=== PATIENT | male | born 1985 | race Caucasian/White ===

== ENCOUNTER 2017-08-20 10:46 | Emergency (ER) | payer OTHER ==
--- NOTE | 2017-08-20 13:06 | Emergency Department Report ---
ED ENT HPI - General Chief complaint: Earache Stated complaint: EAR PAIN Time Seen by Provider: 08/20/17 12:41 Source: patient Mode of arrival: Ambulatory Limitations: No Limitations - History of Present Illness Initial comments: This is a 31 male that presents with left ear pain and clogging sensation for 2 days. Patient reports recently moved here from [place] and does not have a primary care doctor. He has recently applied to transfer here to [place]. Patient reports hearing is normal on right ear but left ear feels flow and urine give small full. He used Q-tips to clean the ears out with no improvement of symptoms. Patient denies drainage and fever. MD complaint: ear pain (left ear) Onset/Timin -: days(s) Location: L ear Severity: mild Severity scale (0 -10): 2 Quality: aching, sharp, constant Consistency: constant Improves with: none Worsens with: none Associated Symptoms: denies: fever, cough, gum swelling, toothache, pain with swallowing, sore throat, tinnitus, hearing loss (muffled hearing in left ear), discharge from ear, rhinorrhea - Related Data Previous Rx's Medication Instructions Recorded Last Taken Type Amoxicillin 500 mg PO BID 10 Days #20 capsule 08/20/17 Unknown Rx Ibuprofen [Motrin 800 MG tab] 800 mg PO Q8HR PRN #20 tablet 08/20/17 Unknown Rx Allergies Allergy/AdvReac Type Severity Reaction Status Date / Time No Known Allergies Allergy Unverified 08/20/17 10:53 ED Dental HPI - General Chief complaint: Earache Stated complaint: EAR PAIN Time Seen by Provider: 08/20/17 12:41 Source: patient Mode of arrival: Ambulatory Limitations: No Limitations - Related Data Previous Rx's Medication Instructions Recorded Last Taken Type Amoxicillin 500 mg PO BID 10 Days #20 capsule 08/20/17 Unknown Rx Ibuprofen [Motrin 800 MG tab] 800 mg PO Q8HR PRN #20 tablet 08/20/17 Unknown Rx Allergies Allergy/AdvReac Type Severity Reaction Status Date / Time No Known Allergies Allergy Unverified 08/20/17 10:53 ED Review of Systems ROS: Stated complaint: EAR PAIN Other details as noted in HPI Constitutional: denies: chills, fever ENT: ear pain (left ear). denies: throat pain, dental pain, hearing loss, epistaxis, congestion Respiratory: denies: cough, shortness of breath, wheezing Cardiovascular: denies: chest pain, palpitations Gastrointestinal: denies: abdominal pain, nausea, diarrhea Neurological: denies: headache, weakness, paresthesias Psychiatric: denies: anxiety, depression ED Past Medical Hx - Past Medical History Previous Medical History?: No Hx Psychiatric Treatment: Yes (bipolar) - Surgical History Past Surgical History?: No - Social History Smoking Status: Never Smoker Substance Use Type: None - Medications Home Medications: Home Medications Medication Instructions Recorded Confirmed Last Taken Type Amoxicillin 500 mg PO BID 10 Days #20 capsule 08/20/17 Unknown Rx Ibuprofen [Motrin 800 MG tab] 800 mg PO Q8HR PRN #20 tablet 08/20/17 Unknown Rx ED Physical Exam - General Limitations: No Limitations General appearance: alert, in no apparent distress - ENT ENT exam: Present: mucous membranes moist. Absent: TM's normal bilaterally ( left TM erythematous, bulging, & immobile) - Respiratory Respiratory exam: Present: normal lung sounds bilaterally. Absent: respiratory distress - Cardiovascular Cardiovascular Exam: Present: regular rate, normal rhythm. Absent: systolic murmur, diastolic murmur, rubs, gallop - GI/Abdominal GI/Abdominal exam: Present: soft, normal bowel sounds - Neurological Exam Neurological exam: Present: alert, oriented X3 - Psychiatric Psychiatric exam: Present: normal affect, normal mood - Skin Skin exam: Present: warm, dry, intact, normal color. Absent: rash ED Course Vital Signs 08/20/17 08/20/17 10:53 13:25 Temperature 98.2 F 98.7 F Pulse Rate 118 H 92 H Respiratory 18 16 Rate Blood Pressure 114/84 Blood Pressure 112/66 [Left] O2 Sat by Pulse 96 99 Oximetry Vital Signs 08/20/17 08/20/17 10:53 13:25 Temperature 98.2 F 98.7 F Pulse Rate 118 H 92 H Respiratory 18 16 Rate Blood Pressure 114/84 Blood Pressure 112/66 [Left] O2 Sat by Pulse 96 99 Oximetry ED Medical Decision Making - Medical Decision Making This is a 31 y.o. male that presents with left ear pain and muffled hearing for 2 days. Patient is stable and was examined by me. Vitals normal. There was cerumen impaction, removed with curette, bulging erythematous TM to the left ear. Physical assessment susceptible of serous otitis media of left ear. Start amoxicillin, tylenol or ibuprofen for pain. Discussed plan with patient and he agreed with plan. Discharged home in stable condition. Follow up with PCP in 24-72 hours. Critical care attestation.: If time is entered above; I have spent that time in minutes in the direct care of this critically ill patient, excluding procedure time. ED Disposition Clinical Impression: Otalgia of left ear Otitis media Qualifiers: Otitis media type: suppurative Chronicity: acute Laterality: left Recurrence: not specified as recurrent Spontaneous tympanic membrane rupture: without spontaneous rupture Qualified Code(s): H66.002 - Acute suppurative otitis media without spontaneous rupture of ear drum, left ear Disposition: TO HOME OR SELFCARE Is pt being admited?: No Does the pt Need Aspirin: No Condition: Stable Instructions: Otitis Media (ED), Earache (ED) Additional Instructions: Give tylenol or ibuprofen for pain every 6-8 hours. Take antibiotics as prescribed to avoid recurrence of the ear infection. Avoid high altitudes, may worsen the pain during ear infection. If symptoms do not improve within 2 to 3 days, then follow up with a primary care provider. Prescriptions: Amoxicillin 500 mg PO BID 10 Days #20 capsule Ibuprofen [Motrin 800 MG tab] 800 mg PO Q8HR PRN #20 tablet PRN Reason: Pain , Severe (7-10) Referrals: [facility] [Outside] - 3-5 Days [facility] [Outside] - 3-5 Days [facility] [Outside] - 3-5 Days Time of Disposition: 13:14 Print Language: ENGLISH
[2017-08-20 13:27] VITALS: BP 112/66
== END 2017-08-20 13:25 | disposition home or self-care (01) ==
LOC: ED 10:46
DX: H66.002 Acute suppurative otitis media without spontaneous rupture of ear drum, left ear (principal); F31.9 Bipolar disorder, unspecified; H61.22 Impacted cerumen, left ear
CPT/HCPCS: 99282

== ENCOUNTER 2017-10-28 15:39 | Emergency (ER) | payer MEDICAID ==
[2017-10-28 16:15] VITALS: BP 107/76
[2017-10-28 16:16] LABS: Basophils % (Auto) 0.7 % (0.0-1.8); Hematocrit 46.9 % (35.5-45.6); Hemoglobin 15.9 gm/dl (11.8-15.2); Lymphocytes # (Auto) 0.9 K/mm3 (1.2-5.4); Lymphocytes % (Auto) 13.5 % (13.4-35.0); Mean Corpuscular HGB Conc 34 % (32-34); Mean Corpuscular Hemoglobin 31 pg (28-32); Mean Corpuscular Volume 91 fl (84-94); Monocytes # (Auto) 0.4 K/mm3 (0.0-0.8); Monocytes % (Auto) 6.2 % (0.0-7.3); Platelet Count 233 K/mm3 (140-440); Red Blood Count 5.13 M/mm3 (3.65-5.03); Red Cell Distribution Width 13.6 % (13.2-15.2)
[2017-10-28 16:43] LABS: BUN/Creatinine Ratio 13; Blood Urea Nitrogen 9 mg/dL (9-20); Calcium 9.8 mg/dL (8.4-10.2); Hemolysis Index 10
--- NOTE | 2017-10-28 17:04 | Emergency Department Report ---
ED Seizure HPI - General Chief Complaint: Syncope Stated Complaint: POSS SEIZURE Time Seen by Provider: 10/28/17 16:37 Source: patient, EMS Mode of arrival: Stretcher Limitations: No Limitations - History of Present Illness Initial Comments: Mr. Mcmillan is a very pleasant 31-year-old male with history of bipolar disorder andschizophrenia who presents with syncope versus seizure. Earlier this week he has 2 seizure like episodes. He fell to the ground and the mother noticed that he was shaking. No previous history of head injury. No history of trauma. His mother felt as if the cause was psychiatric, therefore she voluntarily took him to [facility] on yesterday. He had a similar episode at the facility today. Patient explained that he felt flushed all over and then went down. Patient just moved to [place] 2 months ago. He has moved from [place] with his parents. He denies hallucinations. He denies suicidal or homicidal ideation. However on progress note from [facility], patient admitted to auditory halluciations. Medications include Cogentin and Prozac Prilosec Effexor Xanax Abilify Risperdal. Patient is not on involuntary hold. Mother is at the bedside. No other medical history. He denies hypertension diabetes or asthma. No history of tobacco alcohol or drug use. Patient had mild headache which has resolved. Mother desires to take him home and not return to [facility]. Complaint: possible seizure Description of Episode: loss of consciousness Seizure History: none - Related Data Previous Rx's Medication Instructions Recorded Last Taken Type Amoxicillin 500 mg PO BID 10 Days #20 capsule 08/20/17 Unknown Rx Ibuprofen [Motrin 800 MG tab] 800 mg PO Q8HR PRN #20 tablet 08/20/17 Unknown Rx Allergies Allergy/AdvReac Type Severity Reaction Status Date / Time No Known Allergies Allergy Unverified 08/20/17 10:53 ED Review of Systems ROS: Stated complaint: POSS SEIZURE Other details as noted in HPI Comment: All other systems reviewed and negative Constitutional: denies: fever, malaise Cardiovascular: denies: chest pain, palpitations Neurological: headache. denies: numbness, paresthesias, confusion, abnormal gait ED Past Medical Hx - Past Medical History Previous Medical History?: Yes Hx Psychiatric Treatment: Yes (bipolar/schizophrenia) - Surgical History Past Surgical History?: No - Social History Smoking Status: Never Smoker Substance Use Type: None - Medications Home Medications: Home Medications Medication Instructions Recorded Confirmed Last Taken Type Amoxicillin 500 mg PO BID 10 Days #20 capsule 08/20/17 Unknown Rx Ibuprofen [Motrin 800 MG tab] 800 mg PO Q8HR PRN #20 tablet 08/20/17 Unknown Rx ED Physical Exam - General Limitations: No Limitations General appearance: alert, in no apparent distress - Head Head exam: Present: atraumatic, normocephalic - Eye Eye exam: Present: normal appearance - ENT ENT exam: Present: mucous membranes moist - Neck Neck exam: Present: normal inspection. Absent: tenderness, meningismus - Respiratory Respiratory exam: Present: normal lung sounds bilaterally. Absent: respiratory distress, wheezes, rales, rhonchi - Cardiovascular Cardiovascular Exam: Present: regular rate, normal rhythm, normal heart sounds. Absent: systolic murmur, diastolic murmur, rubs, gallop - GI/Abdominal GI/Abdominal exam: Present: soft, normal bowel sounds. Absent: distended, tenderness, guarding, rebound - Rectal Rectal exam: Present: deferred - Extremities Exam Extremities exam: Present: normal inspection - Back Exam Back exam: Present: normal inspection - Neurological Exam Neurological exam: Present: alert, oriented X3, CN II-XII intact. Absent: motor sensory deficit - Psychiatric Psychiatric exam: Present: normal affect, normal mood, other (pleasant articulate) - Skin Skin exam: Present: warm, dry, intact, normal color. Absent: rash ED Course Vital Signs 10/28/17 10/28/17 10/28/17 15:52 15:54 16:00 Temperature 98.8 F Pulse Rate 109 H 105 H 116 H Respiratory 19 18 10 L Rate Blood Pressure 128/93 128/93 107/76 O2 Sat by Pulse 97 97 96 Oximetry ED Medical Decision Making - Lab Data Result diagrams: 10/28/17 16:01 10/28/17 16:01 Laboratory Results - last 24 hr 10/28/17 10/28/17 10/28/17 16:01 16:01 16:01 WBC RBC Hgb Hct MCV MCH MCHC RDW Plt Count Lymph % (Auto) [place] % (Auto) Eos % (Auto) Baso % (Auto) Lymph # [place] # Eos # Baso # Seg Neutrophils % Seg Neutrophils # Sodium 139 Potassium 4.0 Chloride 100.0 Carbon Dioxide 21 L Anion Gap 22 BUN 9 Creatinine 0.7 L Estimated GFR > 60 BUN/Creatinine Ratio 13 Glucose 92 Calcium 9.8 Troponin T < 0.010 Salicylates < 0.3 L Acetaminophen < 5.0 L Plasma/Serum Alcohol 10/28/17 10/28/17 16:01 16:01 WBC 6.4 RBC 5.13 H Hgb 15.9 H Hct 46.9 H MCV 91 MCH 31 MCHC 34 RDW 13.6 Plt Count 233 Lymph % (Auto) 13.5 [place] % (Auto) 6.2 Eos % (Auto) 0.0 Baso % (Auto) 0.7 Lymph # 0.9 L [place] # 0.4 Eos # 0.0 Baso # 0.0 Seg Neutrophils % 79.6 H Seg Neutrophils # 5.1 Sodium Potassium Chloride Carbon Dioxide Anion Gap BUN Creatinine Estimated GFR BUN/Creatinine Ratio Glucose Calcium Troponin T Salicylates Acetaminophen Plasma/Serum Alcohol < 0.01 - EKG Data -: EKG Interpreted by Md EKG shows normal: sinus rhythm, axis, intervals, QRS complexes, ST-T waves Rate: tachycardia - EKG Data Interpretation: no acute changes - Radiology Data Radiology results: report reviewed CT head without acute process - Medical Decision Making Mr Mcmillan presents with seizure like activity. DDX: medication effect vs epilepsy vs conversion disorder vs vasovagal syncope I do not suspect cardiac cause or PE. Patient will need outpatient evaluation. I have referred patient to internal medicine physician and neurologist. Mother understand concerns. Normal QTc on EKG, torsades highly unlikely although patient is on several psychotropic medications Tachycardia did resolve Critical care attestation.: If time is entered above; I have spent that time in minutes in the direct care of this critically ill patient, excluding procedure time. ED Disposition Clinical Impression: Seizure-like activity, Syncope Disposition: DC-01 TO HOME OR SELFCARE Is pt being admited?: No Does the pt Need Aspirin: No Condition: Stable Instructions: Syncope (ED), Non-epileptic Seizures (ED) Referrals: HIREN DUARTE MD [Staff Physician] - 3-5 Days [facility] [Outside] - 3-5 Days Time of Disposition: 18:52
--- NOTE | 2017-10-28 18:36 | Cat Scan Report ---
FINAL REPORT EXAM: CT HEAD/BRAIN WO CON HISTORY: possible seizure TECHNIQUE: CT examination of the head without IV contrast PRIORS: None. FINDINGS: There is a prominent retrocerebellar CSF collection in the midline, split by the falx, with a normal vermis and normal cerebellar hemispheres. This is most compatible with normal variant ki cisterna magna. No acute air-fluid level visualized in the included air-filled sinuses. Bone windows demonstrate no acute fracture. The brain is without mass, mass effect, hemorrhage, or acute infarct. There is no extra-axial intracranial bleed, brain bleed, or midline shift. The ventricles and sulci are age-appropriate. IMPRESSION: No acute CVA, intracranial bleed, or brain mass
== END 2017-10-28 19:14 | disposition home or self-care (01) ==
LOC: ED 15:39
DX: R56.9 Unspecified convulsions (principal); R55 Syncope and collapse; F31.9 Bipolar disorder, unspecified; F20.9 Schizophrenia, unspecified; Z79.899 Other long term (current) drug therapy
CPT/HCPCS: 36415; 70450; 80048; 84484; 85025; 93005; 93010; 99284; G0480; 80320

== ENCOUNTER 2019-02-22 10:15 | Outpatient (CLI) | payer MEDICAID ==
[2019-02-22 13:37] LABS: Basophils % (Auto) 0.8 % (0.0-1.8); Eosinophils # (Auto) 0.3 K/mm3 (0.0-0.4); Eosinophils % (Auto) 5.5 % (0.0-4.3); Hematocrit 47.4 % (35.5-45.6); Hemoglobin 16.1 gm/dl (11.8-15.2); Lymphocytes % (Auto) 38.4 % (13.4-35.0); Mean Corpuscular HGB Conc 34 % (32-34); Mean Corpuscular Volume 94 fl (84-94); Monocytes # (Auto) 0.4 K/mm3 (0.0-0.8); Monocytes % (Auto) 7.6 % (0.0-7.3); Platelet Count 196 K/mm3 (140-440); Red Blood Count 5.08 M/mm3 (3.65-5.03); Red Cell Distribution Width 12.9 % (13.2-15.2)
[2019-02-22 13:53] LABS: Alanine Aminotransferase 20 units/L (7-56); Albumin 4.7 g/dL (3.9-5); BUN/Creatinine Ratio 23; Blood Urea Nitrogen 14 mg/dL (9-20); Chol/HDL Ratio 4.66 %; HDL Cholesterol 33 mg/dL (40-59); Hemolysis Index 5; LDL Cholesterol,Direct 100 mg/dL (50-130)
[2019-02-25 13:57] LABS: Vitamin D, 25-OH, D2 <4 ng/mL
== END 2019-02-22 10:16 | disposition home or self-care (01) ==
LOC: LAB 10:15
PROVIDERS: ATTEND Internal Medicine
DX: Z00.00 Encounter for general adult medical examination without abnormal findings (principal); Z13.29 Encounter for screening for other suspected endocrine disorder; Z13.21 Encounter for screening for nutritional disorder; R73.9 Hyperglycemia, unspecified; E78.5 Hyperlipidemia, unspecified
CPT/HCPCS: 36415; 80053; 80061; 80164; 82306; 82607; 83036; 84443; 85025

== ENCOUNTER 2019-07-10 08:24 | Outpatient (CLI) | payer MEDICAID ==
--- NOTE | 2019-07-10 09:37 | XRay Report ---
Left ankle, 3 views INDICATION: Left ankle and foot pain FINDINGS: The joint space is maintained. There is no fracture or dislocation. No spurring or arthriti c change. No bone lesion or periostitis. No significant abnormality. IMPRESSION: Negative study Signer Name: Andre Garber MD Signed: 07/10/2019 9:32 AM Workstation Name: [id number]
== END 2019-07-10 08:25 | disposition home or self-care (01) ==
LOC: XRAY 08:24
PROVIDERS: ATTEND Internal Medicine
DX: M25.572 Pain in left ankle and joints of left foot (principal)

== ENCOUNTER 2020-05-30 15:10 | Emergency (ER) | payer MEDICAID ==
[2020-05-30 15:49] VITALS: BP 126/83
[2020-05-30] MEDS ORDERED: hydrOXYzine HCL 25 MG TAB PO ONE (16:00)
[2020-05-30] MEDS ORDERED: BUTALB/ACETAMINOPHEN/CAFFEINE TAB PO ONE (16:00)
--- NOTE | 2020-05-30 16:38 | Emergency Department Report ---
ED Headache HPI - General Chief Complaint: Headache Stated Complaint: HEADACHES Time Seen by Provider: 05/30/20 15:52 - History of Present Illness Initial Comments: Patient is a 34-year-old male presents emergency room with complaints of a headache to the bilateral temples that began earlier today. He did not take any medication for his symptoms. He states that he also believes he has anxiety and was feeling anxious which he reports worsened his headache. He denies any fever, neck stiffness, nausea, vomiting, diarrhea, vision changes, numbness, weakness, bowel or bladder incontinence, speech disturbance, gait disturbance. No past medical history. No allergies to medication. Patient denies any SI or HI. He denies any alcohol use, tobacco use, drug use. Allergies/Adverse Reactions: Allergies No Known Allergies Allergy (Unverified 08/20/17 10:53) Home Medications: Ambulatory Orders Amoxicillin 500 mg PO BID 10 Days #20 capsule 08/20/17 Ibuprofen [Motrin 800 MG tab] 800 mg PO Q8HR PRN #20 tablet 08/20/17 Butalb/Acetaminophen/Caffeine [Fioricet 50-300-40 mg CAP] 1 cap PO Q8HR PRN #10 cap 05/30/20 hydrOXYzine HCL [Atarax] 25 mg PO Q6HR PRN #10 tablet 05/30/20 ED Review of Systems ROS: Stated complaint: HEADACHES Other details as noted in HPI Comment: All other systems reviewed and negative ED Past Medical Hx - Past Medical History Previous Medical History?: Yes Hx Psychiatric Treatment: Yes (bipolar/schizophrenia) - Social History Smoking Status: Never Smoker Substance Use Type: None - Medications Home Medications: Home Medications Medication Instructions Recorded Confirmed Last Taken Type Amoxicillin 500 mg PO BID 10 Days #20 capsule 08/20/17 Unknown Rx Ibuprofen [Motrin 800 MG tab] 800 mg PO Q8HR PRN #20 tablet 08/20/17 Unknown Rx Butalb/Acetaminophen/Caffeine 1 cap PO Q8HR PRN #10 cap 05/30/20 Unknown Rx [Fioricet 50-300-40 mg CAP] hydrOXYzine HCL [Atarax] 25 mg PO Q6HR PRN #10 tablet 05/30/20 Unknown Rx ED Physical Exam - General Limitations: No Limitations General appearance: alert, in no apparent distress - Head Head exam: Present: atraumatic, normocephalic - Eye Eye exam: Present: normal appearance - ENT ENT exam: Present: mucous membranes moist - Neck Neck exam: Present: full ROM. Absent: meningismus - Respiratory Respiratory exam: Present: normal lung sounds bilaterally. Absent: respiratory distress, wheezes, rales, rhonchi, stridor, chest wall tenderness, accessory muscle use, decreased breath sounds, prolonged expiratory - Cardiovascular Cardiovascular Exam: Present: regular rate, normal rhythm, normal heart sounds. Absent: systolic murmur, diastolic murmur, rubs, gallop - Neurological Exam Neurological exam: Present: alert, oriented X3, CN II-XII intact, normal gait. Absent: motor sensory deficit - Expanded Neurological Exam Expanded Patient oriented to: Present: person, place, time Speech: Present: fluid speech Cranial nerves: EOM's Intact: Normal, Gag Reflex: Normal, Facial Sensation: Normal Cerebellar function: Finger to Nose: Normal, Heel to Rizo: Normal, Romberg: Normal Sensory exam: Upper Extremity Light Touch: Normal, Upper Extremity Pin Prick: Normal, Upper Extremity Temperature: Normal, UE 2 Point Discrimination: Normal, Lower Extremity Light Touch: Normal, Lower Extremity Pin Prick: Normal, Lower Extremity Temperature: Normal, LE 2 Point Discrimination: Normal Motor strength exam: RUE: 5, LUE: 5, RLE: 5, LLE: 5 Best Eye Response (Sergio): (4) open spontaneously Best Motor Response (Milton): (6) obeys commands Best Verbal Response (Milton): (5) oriented Milton Total: 15 - Psychiatric Psychiatric exam: Present: normal affect, normal mood - Skin Skin exam: Present: warm, dry, intact ED Course Vital Signs 05/30/20 15:48 Temperature 98.3 F Pulse Rate 81 Respiratory 20 Rate Blood Pressure 126/83 O2 Sat by Pulse 92 Oximetry ED Medical Decision Making - Medical Decision Making Patient is a 34-year-old male presents emergency room with complaints of a headache to the bilateral temples that began earlier today. He did not take any medication for his symptoms. He states that he also believes he has anxiety and was feeling anxious which he reports worsened his headache. He denies any fever, neck stiffness, nausea, vomiting, diarrhea, vision changes, numbness, weakness, bowel or bladder incontinence, speech disturbance, gait disturbance. No past medical history. No allergies to medication. Patient denies any SI or HI. He denies any alcohol use, tobacco use, drug use. Vitals are normal. No focal neuro deficits on exam, no meningeal signs. Patient given medications while in the emergency department and symptoms improved and he was feeling much better ready to go home. Patient given prescription for Fioricet and hydroxyzine. Advised patient Please take medication as prescribed as needed. Please practice healthy coping mechanisms. Follow-up with your primary care doctor. Follow-up with the [facility] regarding anxiety. Return to emergency room immediately for any new or worsening symptoms. If began feeling thoughts of wanting to hurt yourself or others call the [facility] crisis line, 911 or present to the emergency room. For access to services and immediate crisis help, call the [facility] ([facility]) at , available 06/09. Critical care attestation.: If time is entered above; I have spent that time in minutes in the direct care of this critically ill patient, excluding procedure time. ED Disposition Clinical Impression: Anxiousness Headache Qualifiers: Headache type: unspecified Headache chronicity pattern: acute headache Intractability: not intractable Qualified Code(s): R51.9 - Headache, unspecified Disposition: DC-01 TO HOME OR SELFCARE Is pt being admited?: No Does the pt Need Aspirin: No Condition: Stable Instructions: Migraine Headache, [id number], Managing Anxiety, Adult Additional Instructions: Please take medication as prescribed as needed. Please practice healthy coping mechanisms. Follow-up with your primary care doctor. Follow-up with the [facility] regarding anxiety. Return to emergency room immediately for any new or worsening symptoms. If began feeling thoughts of wanting to hurt yourself or others call the [facility] crisis line, 911 or present to the emergency room. For access to services and immediate crisis help, call the [facility] ([facility]) at , available 06/09. Prescriptions: hydrOXYzine HCL [Atarax] 25 mg PO Q6HR PRN #10 tablet PRN Reason: anxious Butalb/Acetaminophen/Caffeine [Fioricet 50-300-40 mg CAP] 1 cap PO Q8HR PRN #10 cap PRN Reason: headache Referrals: [facility] [Outside] - 2-3 Days DELMI RODAS MD [Primary Care Provider] - 2-3 Days Time of Disposition: 17:38 Print Language: VIETNAMESE
== END 2020-05-30 18:36 | disposition home or self-care (01) ==
LOC: ED 15:10
DX: R51.9 Headache, unspecified (principal); F41.9 Anxiety disorder, unspecified; F20.9 Schizophrenia, unspecified; Z79.1 Long term (current) use of non-steroidal anti-inflammatories (NSAID); Z79.2 Long term (current) use of antibiotics; Z79.899 Other long term (current) drug therapy
CPT/HCPCS: 99282